=== PATIENT | male | born 1955 | race Caucasian/White ===

== ENCOUNTER 2018-05-29 19:33 | Observation (INO) | payer BC ==
[2018-05-29] MEDS ORDERED: Nitroglycerin 2% Ointment 1 INCH/1 GM Packet ONE (19:49)
[2018-05-29] MEDS ORDERED: Ondansetron PF 4 MG/2 ML Vial IVP PRN (21:22)
[2018-05-29] MEDS ORDERED: Acetaminophen 325 MG TAB PO PRN (21:22)
[2018-05-29] MEDS ORDERED: Nitroglycerin 0.4 MG TAB (25 Tab Bottle) PO PRN (21:22)
[2018-05-29 22:00] LABS: CKMB 1.3 ng/mL (0-6.6)
[2018-05-29] MEDS ORDERED: Aspirin 325 MG TAB ONE (22:12)
[2018-05-29 23:34] VITALS: BMI 26.6
[2018-05-30 03:00] LABS: #Basophils 0.1 thou/uL (0.0-0.2); #Eosinphils 0.2 thou/uL (0.0-0.7); #Monocytes 0.7 thou/uL (0.11-0.59); #Neutrophils 2.6 thou/uL (1.40-6.50); %Basophils 1.4 % (0.0-1.0); %Eosinophils 3.4 % (0.0-10.0); %Lymphocytes 45.3 % (21.0-51.0); %Monocytes 10.4 % (0.0-10.0); %Neutrophils 39.6 % (42.0-75.0); Hemoglobin 15.7 g/dL (14.0-18.0); Mean Corpuscular HGB CONC 35.5 g/dL (32.0-36.0); Mean Corpuscular Hemoglobin 31.5 pg (27.0-31.0); Mean Corpuscular Volume 88.7 fL (78.0-98.0); Mean Platelet Volume 7.6 fL (7.4-10.4); Platelet Count 213 thou/uL (130-400); RBC Distribution Width 11.6 % (11.5-14.5); Red Blood Cell (RBC) Count 4.98 mill/uL (4.70-6.10); White Blood Cell (WBC) Count 6.6 thou/uL (4.8-10.8)
[2018-05-30 03:33] LABS: Anion Gap 11 mmol/L (10-20); BUN (Urea Nitrogen) 22 mg/dL (8.4-25.7); Calc. Creatinine Clearance 83 mL/min (70-130); Calcium 10.3 mg/dL (7.8-10.44); Carbon Dioxide 25 mmol/L (23-31); Cardiac Risk 6.7 (Less than 4.5); Chloride 105 mmol/L (98-107); Cholesterol 290 mg/dl (< 200 Desired); Estimated GFR-MDRD 76; Glucose 92 mg/dL (80-115); HDL Cholesterol 43 mg/dL (>60 Neg Risk); LDL Cholesterol, Calculated 218 mg/dL; Potassium 4.1 mmol/L (3.5-5.1); Sodium 137 mmol/L (136-145); Triglycerides 147 mg/dL (Less than 150)
[2018-05-30 03:49] LABS: CKMB 0.9 ng/mL (0-6.6)
[2018-05-30] MEDS ORDERED: Enoxaparin Sodium 40 MG/0.4 ML SYRINGE SC SCH (09:00)
[2018-05-30] MEDS ORDERED: Aspirin 325 MG TAB PO SCH (09:00)
[2018-05-30 10:39] LABS: Troponin I 0.042 ng/mL (< 0.028)
[2018-05-30] MEDS ORDERED: ADENOSINE 60 MG/20 ML VIAL ONE (11:51)
--- NOTE | 2018-05-30 12:32 | HP ---
CHIEF COMPLAINT: Worsened chest pain. HISTORY OF PRESENT ILLNESS AND REVIEW OF SYSTEMS: This is a very pleasant 62-year-old man with a background history of gastroesophageal reflux, who presents with a 3-week history of intermittent chest pain brought on with exertion. The patient states yesterday the pain intensified and was associated with nausea. He denies any diaphoresis or vomiting. Denies having any shortness of breath. Has not had any recent cough or hemoptysis. Denies having any fevers. Has not had any issues with his heart in the past. Denies any underlying lung problems, but admits to dipping tobacco. He is normally fit and well. He does report being on statins in the past for high cholesterol, but was unable to tolerate medications due to bilateral leg weakness and aching. Since presenting to the ED, he denies having any further episodes of chest pain. He reports having minimal exertion while here since he is walking to the toilet. Denies having any abdominal pain. No bowel changes. Denies any urinary symptoms. Has not had any recent weight loss. Reports having a regular diet without any difficulties of swallowing. The patient denies having any lower leg pain or swelling. All other review of systems is negative. PAST MEDICAL HISTORY: 1. GERD. 2. Dyslipidemia. PAST SURGICAL HISTORY: 1. Left shoulder. 2. Left knee. SOCIAL HISTORY: The patient reports drinking socially weekly. Denies any illicit drug use. He chews tobacco daily. Denies any smoking. ALLERGIES: NO KNOWN DRUG ALLERGIES. CURRENT MEDICATIONS: 1. Prilosec 40 mg once daily. 2. Etodolac 400 mg twice daily. 3. Glucosamine 500 mg p.o. daily. PHYSICAL EXAMINATION: VITAL SIGNS: Temperature 98.5, pulse 72, respirations 16, O2 saturation 95% on room air, blood pressure 99/55. HEENT: Normocephalic, atraumatic. Pupils are equal, round, reactive to light. Sclerae are without icterus. Oropharynx is clear. NECK: Supple. No lymphadenopathy. LUNGS: Clear to auscultation bilaterally without wheezes, rales, or rhonchi. CARDIAC: Regular rate and rhythm without audible murmurs, rubs, or gallops. ABDOMEN: Soft, nontender, nondistended. Normoactive bowel sounds present. EXTREMITIES: No clubbing, cyanosis, or edema. NEUROLOGIC: Alert and oriented x3. SKIN: Without rash or jaundice. GENERAL: The patient appears well-developed, well-nourished, is in no acute distress. LABORATORY DATA: White blood count 6.6, hemoglobin 15.7, hematocrit 44.2, platelets 213. Sodium 137, potassium 4.1, chloride 105, BUN 22, creatinine 1, GFR 76, calcium 10.3. TNI initially 0.032 and peaked at 0.075, three additional subsequent troponins were checked and trending down. The fourth did show a slight increase to 0.042, repeated again and stable. CK-MB 0.9. BNP less than 10. Triglycerides 147, cholesterol 290, LDL 218, HDL 43. Heart disease risk ratio 6.7. IMAGING DATA: Chest x-ray on May 28, 2018. No acute cardiopulmonary process. There are nodular densities overlying the mid lung zone bilaterally, likely related to nipple shadows. IMPRESSION AND PLAN: Mr. Waldron will be admitted for cardiac workup. 1. Chest pain. Resolved. Cardiac stress test(from [facility]) has been requested. Awaiting results to determine if Cardiology input indicated. Per discussion with Dr. Mcgarry, we will hold on any further tests such as an echocardiogram for now. Continue home medications. 2. Venous thromboembolism prophylaxis. 3. Tobacco use. The patient has refused a nicotine patch, says he has not done a few days. 4. Diet. N.p.o. until stress test complete. The patient's case was discussed with Dr. Mcgarry, who agrees with the plan of care as described above. Job ID: [id number]
--- NOTE | 2018-05-30 14:31 | NM ---
MYOCARDIAL PERFUSION SCAN WITH SPECT IMAGING: HISTORY: Chest pain. FINDINGS: Examination was performed using 27.9 mCi 99m Technetium sestamibi on the stress and 9.3 on the restin g images. This shows a normal distribution of the radiopharmaceutical without signs of ischemia or s car. WALL MOTION: There is symmetric contractility to the ventricle. LEFT VENTRICULAR EJECTION FRACTION: The calculated left ventricular ejection fraction was 65%. IMPRESSION: Unremarkable myocardial perfusion scan. POS: MAXX
[2018-05-30 15:40] VITALS: BP 118/65; TEMP 98.3
--- NOTE | 2018-05-30 18:46 | PDOC.EVN ---
Event Note - Event Note Event Note: Chart reviewed. Pt seen with Jadyn Cottrell. Pt denies current chest pain. VSS. Pt had a negative stress. d-dimer is negative. Pt awaiting discharge. A: Chest pain, most likely musculoskeletal etiology.
== END 2018-05-30 19:17 | disposition home or self-care (01) ==
LOC: ERS 19:33 → 2SW 23:05
PROVIDERS: ADMIT Hospitalist; ATTEND Hospitalist
DX: R07.9 Chest pain, unspecified (principal); K21.9 Gastro-esophageal reflux disease without esophagitis; E78.5 Hyperlipidemia, unspecified; F17.290 Nicotine dependence, other tobacco product, uncomplicated; Z79.899 Other long term (current) drug therapy
CPT/HCPCS: 36415; 78452; 80048; 80061; 82553; 83880; 84484; 85025; 85379; 93017; 94760; 96372; 99285; A9500; G0378; J0153; J1650